=== PATIENT | female | born 1965 | race Caucasian/White ===

== ENCOUNTER 2017-04-01 19:23 | Emergency (ER) | payer OTHER ==
[~2017-04-01] VITALS: Ht 165.1 cm; Wt 90.7 kg
--- NOTE | 2017-04-01 19:44 | Emergency Room Report ---
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 N Clinical Suspician of Infection? N Mental Status: 1 - Regular (Normal Baseline) Sepsis Risk:Low Sepsis Risk Have you (or family members/close friends) recently traveled outside the [place]? N If Yes, where/when: Have you had exposure to infectious disease within the past month? N TB? Other? Specify: Chest pain that began posteriorly today while at rest, felt like a spasm initially, went to left breast area, then across chest and neck. No syncope, diaphoresis, SOB, cough, palpitations, fever, or neurological sx. Reports normal stress test two years ago [place], [place], with results requested. She denies DM/HTN/hyperlipidemia/FH; she is a smoker. 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 Pain is not positional in nature. No recent trauma. Has had some muscle spasm in the past, but the pain is in a different location today and usually does not radiate. ALLERGIES Coded Allergies: No Known Drug Allergies (NKDA) (04/01/17) Home Medications Reported Medications No Known Home Medications History Medical History General CAD? No Angina: No OK: No Hypertension? No Hyperlipidemia? No CHF? No DVT? No PE? No COPD? No Asthma? No Anemia? No GERD? No Gastric ulcers? No GI Bleed? No Hernia? No Thyroid Problems? No Hypothyroidism? No CVA? No Seizures? No Renal Insuffiency? No End Stage Renal Disease? No UTI? No Stones? No BPH? No GB Disease: No Nephritic Syndrome? No Asplenia? No Hepatitis? No Sickle Cell Disease? No Arthritis? No Migraines? No Cataracts? No Glaucoma? No MRSA? No HIV? No TB? No Anxiety? No Depression? No Cancer? No Site: N More? 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 LMP N/A Social History Smoking Hx Smoker: Current Some Day Smoker Tobacco: Yes Type Cigarettes Packs/day < 1 Pack Alcohol Alcohol: No Review of Systems All Other Systems Reviewed and Negative Cardiovascular see HPI Musculoskeletal see HPI Physical Exam Vital Signs Vital Signs Date Time Temp Pulse Resp B/P Pulse O2 O2 Flow FiO2 Ox Delivery Rate 04/01 1925 98.4 71 14 158/87 98 General Appearance normal appearance, WD/WN, no apparent distress Eye Exam - bilateral eye normal exam, bilateral eye PERRL Neck normal inspection, non-tender, supple, full range of motion Respiratory Status Yes: trachea midline, chest symmetrical, tender on palpation. No: respiratory distress, non tender chest, use of accessory muscles, pain on inspiration, pain on expiration, productive cough, non productive cough (L trapezius pain w/ palpation). Lung Sounds bilateral: normal breath sounds, lungs clear. Cardiovascular normal exam, regular rate/rhythm, no peripheral edema, no gallop, no JVD, no murmur, no rub, normal peripheral pulses Gastrointestinal normal bowel sounds, normal exam, non tender, soft, no organomegaly, no pulsatile mass, no guarding, no rebound Extremities non-tender, normal range of motion, normal inspection, normal capillary refill, no calf tenderness, no pedal edema Strength 5 Upper Ext (L), 5 Upper Ext (R), 5 Lower Ext (L), 5 Lower Ext (R) Neurologic alert, normal exam, no motor/sensory deficits, oriented x 3 Skin intact, normal color, warm/dry Medical Decision Making LABS/Meds/Orders Pt receiving controlled substance in ED? No Results/Orders Laboratory Tests 04/01/171925: Sodium 141, Potassium 4.6, Chloride 106, Carbon Dioxide 30, BUN 15, Creatinine 0.9, Estimated Creat Clear 106, Estimated GFR (MDRD) 66, Glucose 99, Calcium 9.7 , Total Bilirubin 0.3, AST 30, ALT 16, Alkaline Phosphatase 95, Troponin I < 0.02, Total Protein 9.0 H, Albumin 3.6, Globulin 5.4 H, Albumin/Globulin Ratio 0.7 L, WBC 12.1 H, RBC 4.73, Hgb 14.1, Hct 42.7, MCV 90.2, RDW 13.0, Plt Count 270, MPV 7.5, Gran % 65.9, Gran # 8.0 H, Lymphocytes % 29.1, Monocytes % 4.0, Eosinophils % 0.7, Basophils % 0.3, Lymphocytes # 3.5, Monocytes # 0.5, Eosinophils # 0.1, Basophils # 0.0, PUBS MCHC 33.0, MCH 29.7 Current Medication Orders Sig/Bryan Start time Last Medication Dose Route Stop Time Status Admin Ketorolac 30 MG ONCE ONE 04/01 2015 AC Tromethamine IV 04/01 2016 Sodium Chloride 10 ML PRN PRN 04/01 1945 AC IV 04/02 1938 Orders Procedure Date/time Status CHEST-PORTABLE 04/01 2004 Active ELECTROCARDIOGRAM REQUEST 04/01 1938 Active IV SALINE LOCK 04/01 1938 Active TROPONIN I 04/01 1938 Complete CBC WITH AUTO DIFF 04/01 1938 Complete CHEM 12 PROFILE 04/01 1938 Complete CM/EKG CM/EKG EKG rate, NSR, rhythm, no ectopy, normal QRS, normal AK, normal EKG (ST changes V1-V3 old EKG reque) XRAY/CT/US XRAY/CT/US XRAY chest XR interpretation by reviewed by me Xray Results normal/NAD, no infiltrates, normal heart size, normal lung inflation bryant Departure Departure Time of Disposition 2006 Disposition DC Home or Self Care(routine) Clinical Impression Primary Impression: Atypical chest pain Condition STABLE Patient Instructions DI for Atypical Chest Pain Additional Instructions Aleve over the counter, moist heat, see your family doctor next week for follow up. Discharge Counseling Counseled pt/family regarding diagnosis, test results, medications/RX, home care, follow up needs Prescriptions Current Visit Scripts No Known Home Medications ED Critical Care Critical Care No at 2008
[2017-04-01 19:47] LABS: HEMOGLOBIN 14.1 g/dL (12.2-16.2); LYMPH # 3.5 K/mm3 (0.7-4.5); LYMPH % 29.1 % (10-50.0)
[2017-04-01 19:57] LABS: BUN 15 mg/dL (7-18)
[2017-04-01 20:00] LABS: GFR (ESTIMATED) 66 ML/MIN (59-)
--- OUTSIDE RECORDS SUMMARY | 2017-04-01 20:05 | External Medical Summary Rpt ---
Author Author BENI Hawa, [employer] Organization [employer] Address Unknown Phone Unavailable Results MM MAMMO DIGITAL SCREENING W CAD BILAT Observa Value Referen Units Interpr Notes Date tion ce etation Range Procedu No No No No Aug 20 re:MM informa informa informa informa 2014 MAMMO tion in tion in tion in tion in 11:12 DIGITAL source source source source AM data data data data SCREENI NG W CAD BILAT\. br\Reas on for exam: screeni ng (asympt omatic) .\.br\M M MAMMO DIG SCREEN CAD BILAT\. br\Bila teral CC and MLO view(s) were taken.\ .br\Heather hnologi st: Karen Guthier \.br\Th ere are scatter ed fibrogl andular densiti es. There are two calcifi ed oil\.br \cysts in the anterio r 12:00 positio n of the left breast. \.br\No suspici ous calcifi cations .\.br\C ompared to prior studies the most recent being 09-16-10 \.br\IM PRESSIO N: Negativ e (ACR-Ca tegory- 1)\.br\ RECOMME NDATION :\.br\R outine screeni ng mammogr am in 1 year.\. br\* The patient with a palpabl e abnorma lity, unexpla ined by breast\ .br\earl ging, should be managed on clinica l basis by the attendi ng physici an.\.br \* Breast imaging has a false negativ e rate of 15%.\.b r\* The patient was notifie d by mail of the results of this examina tion.\. br\*The patient 's informa tion was entered into a [employer] r system with a\.br\t arget\. br\due date for the next mammogr am.\.br \The mammogr am was reviewe d by a Radiolo gist and CAD. ST STRESS TEST EXERCISE Observa Value Referen Units Interpr Notes Date tion ce etation Range Exercis No No No No Aug 13 e ECG informa informa informa informa 2014 Report\ tion in tion in tion in tion in 8:46 AM .br\St. source source source source data data data data Roberto th [facility]\ .br\Int erpreti ve Stateme nts\.br \Type of Test: Exercis e\.br\R javier for Exam: syncope \.br\Or dering Diagnos is: syncope \.br\Re sting HR: 116 Peak HR: 167\.br \Restin g B/P 94/62 Peak B/P 139/51\ .br\1. METS achieve d 8.0\.br \2. WALKED _7:16__ MINUTES ON FULL FELIPE PROTOCO L\.br\3 . Target HR achieve d __x_ Yes ___ NO____H EART RATE\.b r\4. Termina tion of test due to fatigue \.br\5. Symptom s: none\.b r\6. Imaging pending _x___no ____ yes\.br \7. Resting EKG:\.b r\8. Arrhyth mias:\. br\9. Conclus ion:\.b r\No ischemi c ST changes followi ng exercis e\.br\F air exercis e capacit y for age\.br \No arrhyth mias noted\. br\Rest ing EKG: Normal sinus rhythm with subtle ST changes that remain unchang ed\.br\ followi ng exercis e\.br\E lectron ically Signed On 015 12:03:1 8 EST by Pardeep freeman MD Glyco Observa Value Referen Units Interpr Notes Date ti ce etation Range Hemoglo 5.3 <=7.0 % No Referen Aug 10 bin informa ce 2014 A1c/Hem tion in Interva 6:31 PM oglobin source l for .total data Hgb in A1c\.br Blood \\.br\H gb A1c Interpr etation \.br\-- ------- -- ------- ------- --\.br\ \.br\ < 6.0 Non-Theresa betic Range\. br\6.0 - 7.0 ADA Therape utic Target\ .br\ > 7.0 Action suggest ed Hemogram Observa Value Referen Units Interpr Notes Date tion ce etation Range LEUKOCY 12.9 4.0 - x10(3)/ High No Aug 10 ZOE 11.0 mcL informa 2014 tion in 5:06 PM source data Erythro 5.10 3.80 - x10(6)/ No No Aug 10 cytes 5.10 mcL informa informa 2014 [#/volu tion in tion in 5:06 PM me] in source source Blood data data by Automat ed count Hemoglo 15.2 12.0 - gm/dL No Aug 10 bin 15.6 informa informa 2014 [Mass/v tion in tion in 5:06 PM olume] source source in data data Blood Hematoc 46.0 35.7 - % High No Aug 10 rit 45.9 informa 2014 [Volume tion in 5:06 PM source Fractio data n] of Blood by Automat ed count Erythro 90.1 82.5 - fL No Aug 10 cyte 99.8 informa informa 2015 mean tion in tion in 5:06 PM corpusc source source ular data data volume [Entiti c volume] by Automat ed count Erythro 29.7 27.0 - pg No Aug 10 cyte 34.3 informa informa 2014 mean tion in tion in 5:06 PM corpusc source source ular data data hemoglo bin [Entiti c mass] by Automat ed count Erythro 33.0 32.1 - gm/dL No Aug 10 cyte 35.3 informa informa 2015 mean tion in tion in 5:06 PM corpusc source source ular data data hemoglo bin concent ration [Mass/v olume] by Automat ed count Erythro 14.1 11.5 - % No Aug 10 cyte 15.0 informa informa 2015 distrib tion in tion in 5:06 PM ution source source width data data [Ratio] by Automat ed count Platele 311 144 - x10(3)/ No No Aug 10 ts 423 mcL informa informa 2014 [#/volu tion in tion in 5:06 PM me] in source source Blood data data by Automat ed count MPV 9.6 6.8 - fL No No Aug 10 10.8 informa informa 2014 tion in tion in 5:06 PM source source data data XR COLON MOTILITY Observa Value Referen Units Interpr Notes Date ce etation Range XR No No No No Jul 19 COLON informa informa informa informa 2014 MOTILIT tion in tion in tion in tion in 10:09 Y source source source source AM data data data data 015 6:06 PM\.br\ \.br\Hi story: K59.00- Constip ation, unspeci fied-IC D-10-CM ;\.br\\ .br\Day 5 film compare d to study from 5.\.br\ \.br\3 Sitz[place] ks markers are identif ied project ing in the right lower quadran t\.br\o shantel\.br \the right iliac bone and sacrum. They're presuma jamel in the right colon\. br\prox imally. No other Sitzmar ks markers seen. Moderat e stool through out\.br \colon. \.br\\. br\Impr ession: 3 residua l Sitzmar ks markers right lower quadran t\.br\ XR COLON MOTILITY Observa Value Referen Units Interpr Notes Date ti ce etation Range XR No No No No Jul 14 COLON informa informa informa informa 2014 MOTILIT tion in tion in tion in tion in 3:04 PM Y source source source source data data data data 015 3:04 PM\.br\ \.br\HI STORY: K59.00- Constip ation, unspeci fied-IC D-10-CM \.br\\. br\Comp arison: 5\.br\\ .br\IMP RESSION : Nonobst ructive bowel gas pattern . No radiopa que Sitzmar ks\.br\ markers \.br\ar e seen. Moderat e colonic stool burden in ascendi ng and transve rse colon.\ .br\ XR ABDOMEN AP Observa Value Referen Units Interpr Notes Date tion ce etation Range \.br\XR No No No No Nov 6 informa informa informa informa 2014 ABDOMEN tion in tion in tion in tion in 12:04 AP source source source source PM 07/10/20 data data data data 15 12:04 PM\.br\ \.br\HI STORY: K59.00- Constip ation, unspeci fied-IC D-10-CM \.br\R1 0.84-Ge neraliz ed abdomin al pain-IC D-10-CM \.br\\. br\\.br \Nonobs tructiv e bowel gas pattern . No organom egaly, soft tissue mass or\.br\ patholo gic calcifi cations . Small amount of fecal materia l is present in\.br\ the\.br \right colon.\ .br\\.b r\IMPRE SSION: Nonspec ific abdomen \.br\ EC ECHOCARDIOGRAM EXERCISE STRESS W DOPPLER AND COLOR FLOW MAPPING Observa Value Referen Units Interpr Notes Date tion ce etation Range St. No No No No Jun 20 Roberto informa informa informa informa 2011 th tion in tion in tion in tion in 10:41 [facility] source source source source AM are-Ft. data data data data [address] [id number] [phone]. [email or web address] mStress EchoRep CHANCE Harper Exam Date: 012 10:41 Orderin g Phys: MAURICIO ALLEN MDAge: 47 Gender: F Exam Locatio n: [facility] [place] ECHO Referri ng Phys:MAURICIO HUMMEL GMRN: [id number] Room Number: [id number] Technol ogist: Lynn Nunez , RDCSDOB : 1965-07 -25Ht: 66 in Wt: 250 lbs BSA: 2.34 Accessi on Number: [id number] 518HR: bpm BP: / mmHgPro cedure CPT: 52853Rg dicatio n: CHEST PAIN, Chest PainICD -9 Codes: 786.9Cr itical Result: No Critica l Finding History : chest painRis k Factors :Rhythm :Cardia c Medicat ions:Me dicatio ns in past 24 hours:C ontrast : Total dose(mL ):Stres s Results Protoco l:Felipe Exercis e Duratio n (min:se c):6:34 METS: 7.Resti ng HR: Resting BP: / Max Predict ed HR:174 Target HR: 148Peak HR: Peak BP: / % Max Predict ed HR Double Product :Stress Summary :BP Respons e:Reaso n for Termina tion:Ca rdiac Symptom s:MEASU REMENTS (Male/F emale) Normal ValuesM EASUREM ENTS 2D ECHOLV Diastol ic Diamete r GLADIS 4.6 cm 4.2 - 5.9 / 3 LVPW Diastol ic Thickne ss 1.3 cm 0.6 - 1.1 cmIVS Diastol ic Thickne ss 1.1 cm 0.6 - 1.0 / 0.6 - 0.9 cmMEASU REMENTS DOPPLER Mitral E to A Ratio 1.1 Right Ventric ular Systoli 29.7 mmHgTR Peak Velocit y 222.0 cm/s Mitral E to LV E' Lateral 7.4TR Peak Gradien t 19.7 mmHgFIN DINGSLe ft Ventric le Normal global left ventric ular size.mi ld concent joyce left ventric ular hypertr ophy.No obvious regiona l wall motion abnorma lities. Left ventric ular ejectio n fractio n estimat ed at 60-65%. Right Ventric le Normal right ventric ular size and functio n.Right Atrium Normal right atrial size.Le ft Atrium Normal left atrial size.Mi tral Valve Mild mitral annular calcifi cation. Mild thicken ing,of the mitral valve leaflet s. No mitral stenosi s.No mitral regurgi tation. Aortic Valve Trileaf let aortic valve.D iffuse thicken ing (sclero sis) of the aortic valve cusps without reduced excursi on.No aortic regurgi tation. Tricusp id Valve Nosigni ficant tricusp id regurgi tation. Right ventric ular systoli c pressur e estimat ed at 29 mmHg.Pu lmonic Valve Structu rally normal pulmoni c valve.P ericard ium Minimal pericar dial effusio n (normal variant ).Aorta Normal size aortic rootCON CLUSION SThe global left ventric ular systoli c functio n improve d with stress. Normal treadmi ll stress echocar diogram .No echocar diograp hic evidenc e of myocard ial ischemi a.Clifford Navarro MD(Elec tronica lly Signed) Final Date:20 June 2012 15:50 ST STRESS TEST EXERCISE Observa Value Referen Units Interpr Notes Date ti ce etation Range NO No No No No Jun 20 ISCHEMI informa informa informa informa 2011 C ECG ti in in in in 10:36 CHANGES source source source source AM WITH data data data data EXERCIS E, ECHO PORTION PENDING EK EKG 12 LEAD Observa Value Referen Units Interpr Notes Date ce etation Range Sinus No No No No Jun 20 rhythmP informa informa informa informa 2011 ossible ti in in in in 6:51 AM source source source source anterio data data data data r infarct - age undeter minedIn ferior T wave changes are nonspec ificLat eral ST changes more pronoun ji than previou s tracing - possobl y ischemi cAbnorm al ECG XR CHEST PA AND LATERAL Observa Value Referen Units Interpr Notes Date ce etation Range TEXT Two-vie No No No No Jun 19 DIAGNOS w chest informa informa informa informa 2011 IS date in in in in 10:08 BATTERY source source source source PM 012 data data data data time 2204HIS TORY: Chest pain.FI NDINGS: The cardiop ericard ial silhoue tte, mediast inum vascula r arewith in normal limits. Thelung s are clear.I MPRESSI ON: Normal 2 view chest. EK EKG 12 LEAD Observa Value Referen Units Interpr Notes Date ti ce etation Range Sinus No No No No Jun 19 rhythmP informa informa informa informa 2011 oor R ti in in in in 9:48 PM wave source source source source progres data data data data arsenio - probabl e normal variant Anterio r T wave changes are nonspec ificBor derline ECGNo previou s records availab le at this time
--- OUTSIDE RECORDS SUMMARY | 2017-04-01 20:05 | External Medical Summary Rpt ---
Author Author JANY Address Unknown Phone [email or web address] Purpose Continuity of Care Document - 06-19-2012 through 2016 Problems Code Diagnosis DOS Provider Status B08.5 Enteroviral vesicular pharyngitis F17.200 Nicotine dependence, unspecified , uncomplicat ed
--- OUTSIDE RECORDS SUMMARY | 2017-04-01 20:05 | External Medical Summary Rpt ---
Demographics Preferred Language Occitan Marital Status Unknown Religion Affiliation Unknown Race Unknown Ethnic Group Unknown Author Author , BENI BAZAN Address Unknown Phone Immunization Unable to retrieve immunization data due to connection failure with Immunization Registry. Please try again later.
--- OUTSIDE RECORDS SUMMARY | 2017-04-01 20:05 | External Medical Summary Rpt ---
Demographics Preferred Language Faroese Marital Status Unknown Amish Affiliation Unknown Race Unknown Ethnic Group Unknown Author Author , BENI BAZAN Address Unknown Phone Immunization Unable to retrieve immunization data due to connection failure with Immunization Registry. Please try again later.
--- OUTSIDE RECORDS SUMMARY | 2017-04-01 20:05 | External Medical Summary Rpt ---
Author Author [employer] Organization [employer] Address Unknown Phone Unavailable Purpose Continuity of Care Document - through 2016
--- OUTSIDE RECORDS SUMMARY | 2017-04-01 20:05 | External Medical Summary Rpt ---
Author Author JANY Address Unknown Phone [email or web address] Purpose Continuity of Care Document - 06-19-2012 through 2016 Problems Code Diagnosis DOS Provider Status B08.5 Enteroviral vesicular pharyngitis F17.200 Nicotine dependence, unspecified , uncomplicat ed
--- OUTSIDE RECORDS SUMMARY | 2017-04-01 20:05 | External Medical Summary Rpt ---
[...] 's informa tion was entered into a [employer] system with a\.br\t arget\. br\due date [...] source AM are-Ft. data data data data [address] [id number] [phone] mStress EchoRep CHANCE Harper Exam Date: 012 10:41 Orderin g Phys: MAURICIO ALLEN MDAge: 47 Gender: F Exam Locatio n: [facility] ECHO Referri ng Phys:MAURICIO HUMMEL GMRN: [id number] Room Number: [id number] Technol ogist: Lynn Nunez , RDCSDOB : 1965-07 -25Ht: 66 in Wt: 250 lbs BSA: 2.34 Accessi on Number: [id number] 518HR: bpm BP: / mmHgPro cedure CPT: 58007Rf dicatio n: CHEST PAIN, Chest PainICD -9 [...]
[2017-04-01 20:33] VITALS: BP 114/73
--- NOTE | 2017-04-01 22:05 | RADIOLOGY REPORT PS360 ---
CHEST-PORTABLE COMPARISON: None HISTORY: Chest pain TECHNIQUE: Portable upright chest FINDINGS: The lung grullon are well expanded and appear clear of infiltrate. The cardiac silhouette and vascularity are normal and the costo phrenic angles are clear. There are monitor lines overlying the chest. IMPRESSION: Negative portable chest
== END 2017-04-01 20:34 | disposition home or self-care (01) ==
LOC: ER 19:23
PROVIDERS: Emergency Medicine
DX: R07.89 Other chest pain (principal)